=== PATIENT | male | born 1975 | race Caucasian/White ===

== ENCOUNTER 2017-08-10 01:28 | Emergency (ER) | payer OTHER, SELFPAY ==
[2017-08-10 02:06] LABS: #Basophils 0.2 thou/uL (0.0-0.2); #Eosinphils 0.3 thou/uL (0.0-0.7); #Lymphocytes 3.6 thou/uL (1.20-3.40); #Monocytes 1.2 thou/uL (0.11-0.59); #Neutrophils 11.7 thou/uL (1.40-6.50); %Basophils 0.9 % (0.0-1.0); %Eosinophils 1.8 % (0.0-10.0); %Lymphocytes 21.4 % (21.0-51.0); %Monocytes 7.2 % (0.0-10.0); Hematocrit 51.7 % (42.0-52.0); Mean Platelet Volume 6.9 fL (7.4-10.4); Red Blood Cell (RBC) Count 5.38 mill/uL (4.70-6.10)
[2017-08-10 02:20] LABS: ALT (SGPT) 33 U/L (8-55); AST (SGOT) 17 U/L (5-34); Alkaline Phosphatase 62 U/L (40-150); Anion Gap 14 mmol/L (10-20); BUN (Urea Nitrogen) 14 mg/dL (8.9-20.6); Bilirubin, Total 0.4 mg/dL (0.2-1.2); Calc. Creatinine Clearance 0 mL/min (70-130); Calcium 9.9 mg/dL (7.8-10.44); Carbon Dioxide 23 mmol/L (22-29); Chloride 102 mmol/L (98-107); Estimated GFR-MDRD 90; Globulin 3.2 g/dL (2.4-3.5); Lipase 38 U/L (8-78); Protein, Total 7.8 g/dL (6.0-8.3)
[2017-08-10] MEDS ORDERED: Lidocaine Viscous Sol 2% 15 ml UD Cup ONE (02:50)
[2017-08-10] MEDS ORDERED: Ondansetron HCl/PF 4 MG/2 ML Vial ONE (02:50)
[2017-08-10] MEDS ORDERED: Mag-Al 1200 mg/1200 mg/30 ML UDCUP ONE (02:50)
[2017-08-10] MEDS ORDERED: Famotidine/PF 20 mg/2ml Vial ONE (03:00)
[2017-08-10 03:19] LABS: Troponin I 0.011 ng/mL (< 0.028)
[2017-08-10] MEDS ORDERED: Fentanyl 100 MCG/2 ML VIAL ONE ×2 (03:41→05:17)
[2017-08-10] MEDS ORDERED: Iopamidol 370 76% 100 ML VIAL ONE (07:50)
--- NOTE | 2017-08-10 12:07 | CT ---
PRELIMINARY REPORT/[facility]/EMERGENCY AFTER HOURS PROCEDURE: EXAM: CT Abdomen and Pelvis With Intravenous Contrast CLINICAL HISTORY: 42 years old, male; Pain; Abdominal pain; Epigastric; Patient HX: 42 y/o male, HX pancreatitis and po ssible pud, HTN, . presents for epigastric pain x 1 month present almost every day. Pt reports he patricia es protonix and carafate daily. No nvd, no fever. He ate fried chicken strips for dinner prior to com ing in. Pt reports the pain is sometimes worse with or after eating TECHNIQUE: Axial computed tomography images of the abdomen and pelvis with intravenous contrast. All CT scans at this facility use one or more dose reduction techniques, viz.: automated exposure control; ma/kV adj ustment per patient size (including targeted exams where dose is matched to indication; i.e. head); or iterative reconstruction technique. Coronal reformatted images were created and reviewed. CONTRAST: 96 mL of [id number] administered intravenously. COMPARISON: No relevant prior studies available. FINDINGS: Lower thorax: No acute findings. ABDOMEN: Liver: Normal. Gallbladder and bile ducts: Unremarkable. No biliary ductal dilatation. Pancreas: Approximately 1.5 cm low attenuation lesion in the pancreatic head, somewhat ill-defined pe ripherally with central fluid density. Otherwise grossly unremarkable. No significant peripancreatic inflammatory changes identified. Apparent short segment duodenal narrowing at the level of the pancre atic head may be due to contraction, although the appearance raises the possibility of a thin annular pancreas. Spleen: Normal. Adrenals: Normal. Kidneys and ureters: Normal. Stomach and bowel: Unremarkable. No evidence of obstruction. Appendix: No findings to suggest acute appendicitis. PELVIS: Bladder: Unremarkable. Reproductive: Unremarkable. ABDOMEN and PELVIS: Intraperitoneal space: No free air. No significant fluid collection. Bones/joints: Unremarkable. No acute fracture. Soft tissues: Unremarkable. Vasculature: Mild atherosclerotic plaque along the infrarenal aorta. Lymph nodes: Unremarkable. No enlarged lymph nodes. IMPRESSION: Small low attenuation lesion in the pancreatic head may represent a pseudocyst given the history. Comparison with any previous examinations and/or followup recommended. No significant peripancreatic inflammatory changes. Thank you for allowing us to participate in the care of your patient. Dictated and Authenticated by: Tee Diaz MD 08/10/2017 4:48 AM Central Time ([place] & [place]) FINAL REPORT CT ABDOMEN AND PELVIS: Technique: Multiple axial tomograms were obtained through the abdomen and pelvis with IV enhancement. History: Abdominal pain, history of pancreatitis. FINDINGS/IMPRESSION: There is a low attention lesion in the head of the pancreas measuring 1.2 cm. This was described on t he preliminary report. Pancreatic duct is mildly prominent. Comparison is made to prior CT of 02-23-12 and peripancreatic inflammatory changes were seen on that e xam. However, this low attention lesion was not present at that time. While a pseudocyst is a possibi lity, given history of pancreatitis, cystic neoplasm cannot be excluded and close follow up is recomm ended. Recommend repeat CT scan of the abdomen with pancreatic protocol within 3 months to evaluate. I am in agreement with the preliminary report. Code QA. Code T POS: [facility]
== END 2017-08-10 06:03 | disposition home or self-care (01) ==
LOC: ERS 01:28
DX: K29.70 Gastritis, unspecified, without bleeding (principal); I10 Essential (primary) hypertension; F41.9 Anxiety disorder, unspecified; F32.9 Major depressive disorder, single episode, unspecified; F17.210 Nicotine dependence, cigarettes, uncomplicated; Z79.899 Other long term (current) drug therapy
CPT/HCPCS: 36415; 74177; 80053; 82150; 82553; 83690; 84484; 85025; 93005; 96361; 96374; 96375; 96376; 99406; J2405; J3010; S0028

== ENCOUNTER 2018-03-24 16:37 | Emergency (ER) | payer BC, SELFPAY ==
[2018-03-24] MEDS ORDERED: HYDROcodone/Acetaminophen 10/325 mg Tablet ONE (16:53)
[2018-03-24] MEDS ORDERED: HYDROmorphone 0.5 MG/0.5 ML SYRINGE ONE (17:24)
[2018-03-24 17:26] LABS: #Basophils 0.1 thou/uL (0.0-0.2); #Eosinphils 0.3 thou/uL (0.0-0.7); #Lymphocytes 2.3 thou/uL (1.20-3.40); #Monocytes 1.1 thou/uL (0.11-0.59); #Neutrophils 6.6 thou/uL (1.40-6.50); %Basophils 0.6 % (0.0-1.0); %Eosinophils 2.8 % (0.0-10.0); %Lymphocytes 22.4 % (21.0-51.0); %Monocytes 10.5 % (0.0-10.0); %Neutrophils 63.8 % (42.0-75.0); Hemoglobin 12.6 g/dL (14.0-18.0); Mean Corpuscular HGB CONC 33.6 g/dL (32.0-36.0); Mean Corpuscular Hemoglobin 29.6 pg (27.0-31.0); Mean Corpuscular Volume 87.9 fL (78.0-98.0); Platelet Count 327 thou/uL (130-400); RBC Distribution Width 13.7 % (11.5-14.5); Red Blood Cell (RBC) Count 4.25 mill/uL (4.70-6.10); White Blood Cell (WBC) Count 10.4 thou/uL (4.8-10.8)
[2018-03-24 17:47] LABS: ALT (SGPT) 12 U/L (8-55); AST (SGOT) 12 U/L (5-34); Albumin 3.6 g/dL (3.5-5.0); Alkaline Phosphatase 74 U/L (40-150); Anion Gap 12 mmol/L (10-20); BUN (Urea Nitrogen) 13 mg/dL (8.9-20.6); Bilirubin, Total 0.2 mg/dL (0.2-1.2); Calc. Creatinine Clearance 0 mL/min (70-130); Calcium 9.3 mg/dL (7.8-10.44); Carbon Dioxide 29 mmol/L (22-29); Chloride 101 mmol/L (98-107); Estimated GFR-MDRD Greater than 90; Globulin 3.1 g/dL (2.4-3.5); Glucose 187 mg/dL (70-105); Protein, Total 6.7 g/dL (6.0-8.3); Sodium 138 mmol/L (136-145)
== END 2018-03-24 19:36 | disposition home or self-care (01) ==
LOC: ERS 16:37
DX: S81.802A Unspecified open wound, left lower leg, initial encounter (principal); F17.210 Nicotine dependence, cigarettes, uncomplicated; F41.9 Anxiety disorder, unspecified; F32.9 Major depressive disorder, single episode, unspecified; X58.XXXA Exposure to other specified factors, initial encounter
CPT/HCPCS: 36415; 80053; 83605; 85025; 87070; 87077; 87186; 87205; 96374; J1170

== ENCOUNTER 2018-04-17 07:53 | Emergency (ER) | payer SELFPAY ==
[2018-04-17] MEDS ORDERED: HYDROmorphone 0.5 MG/0.5 ML SYRINGE ONE (09:04)
[2018-04-17] MEDS ORDERED: Ondansetron ODT 4 MG TAB ONE (09:04)
[2018-04-17 10:05] LABS: #Basophils 0.1 thou/uL (0.0-0.2); #Eosinphils 0.2 thou/uL (0.0-0.7); #Lymphocytes 1.9 thou/uL (1.20-3.40); #Monocytes 1.1 thou/uL (0.11-0.59); #Neutrophils 12.3 thou/uL (1.40-6.50); %Basophils 0.5 % (0.0-1.0); %Lymphocytes 12.2 % (21.0-51.0); %Monocytes 6.8 % (0.0-10.0); %Neutrophils 79.5 % (42.0-75.0); Hemoglobin 12.8 g/dL (14.0-18.0); Mean Corpuscular HGB CONC 33.6 g/dL (32.0-36.0); Mean Corpuscular Hemoglobin 28.6 pg (27.0-31.0); Mean Platelet Volume 6.5 fL (7.4-10.4); Platelet Count 473 thou/uL (130-400); RBC Distribution Width 13.8 % (11.5-14.5); Red Blood Cell (RBC) Count 4.48 mill/uL (4.70-6.10); White Blood Cell (WBC) Count 15.4 thou/uL (4.8-10.8)
[2018-04-17 10:36] LABS: ALT (SGPT) 16 U/L (8-55); AST (SGOT) 24 U/L (5-34); Albumin 3.6 g/dL (3.5-5.0); Alkaline Phosphatase 105 U/L (40-150); BUN (Urea Nitrogen) 6 mg/dL (8.9-20.6); Bilirubin, Total Less than 0.2 mg/dL (0.2-1.2); Calc. Creatinine Clearance 0 mL/min (70-130); Calcium 9.7 mg/dL (7.8-10.44); Carbon Dioxide 21 mmol/L (22-29); Estimated GFR-MDRD Greater than 90; Globulin 3.9 g/dL (2.4-3.5); Glucose 216 mg/dL (70-105); Protein, Total 7.5 g/dL (6.0-8.3); Sodium 140 mmol/L (136-145)
[2018-04-17 10:37] LABS: Chloride 102 mmol/L (98-107); Potassium 2.9 mmol/L (3.5-5.1)
[2018-04-17 10:38] LABS: Anion Gap 20 mmol/L (10-20)
[2018-04-17] MEDS ORDERED: Potassium Chloride 20 MEQ TAB ONE (10:49)
== END 2018-04-17 11:10 | disposition left against medical advice (07) ==
LOC: ERS 07:53
DX: M86.9 Osteomyelitis, unspecified (principal); E87.6 Hypokalemia; E78.5 Hyperlipidemia, unspecified; I10 Essential (primary) hypertension; F41.9 Anxiety disorder, unspecified; F32.9 Major depressive disorder, single episode, unspecified; Z87.891 Personal history of nicotine dependence; Z79.899 Other long term (current) drug therapy
CPT/HCPCS: 36415; 80053; 83605; 85025; 87040; 96372; J1170; Q0162

== ENCOUNTER 2018-06-07 15:34 | Inpatient (IN) | payer BC, SELFPAY ==
[~2018-06-07 15:34] MED LIST: Iopamidol 370 76% 100 ML VIAL ONE; Iopamidol 370 76% 50 ML VIAL FS ONE
[2018-06-07] MEDS ORDERED: Lidocaine 1% (PF) 30 ML VIAL ONE (15:53)
[2018-06-07 15:57] LABS: #Basophils 0.1 thou/uL (0.0-0.2); #Eosinphils 0.4 thou/uL (0.0-0.7); #Monocytes 0.8 thou/uL (0.11-0.59); #Neutrophils 6.3 thou/uL (1.40-6.50); %Eosinophils 3.2 % (0.0-10.0); %Lymphocytes 34.6 % (21.0-51.0); %Neutrophils 54.2 % (42.0-75.0); Hemoglobin 16.3 g/dL (14.0-18.0); Mean Corpuscular HGB CONC 33.4 g/dL (32.0-36.0); Mean Corpuscular Hemoglobin 29.4 pg (27.0-31.0); Mean Platelet Volume 7.6 fL (7.4-10.4); Platelet Count 333 thou/uL (130-400); RBC Distribution Width 14.7 % (11.5-14.5); Red Blood Cell (RBC) Count 5.54 mill/uL (4.70-6.10); White Blood Cell (WBC) Count 11.5 thou/uL (4.8-10.8)
--- NOTE | 2018-06-07 16:14 | RAD ---
CHEST ONE VIEW: History: 43-year-old male with history of chest pain. Stemi alert. Comparison: 03-20-14 FINDINGS: Heart size is within normal limits. The lungs are clear. No pneumonia, edema, pleural effusion or oth er acute process. IMPRESSION: No acute intrathoracic disease. POS: [facility]
[2018-06-07 16:21] LABS: ALT (SGPT) 21 U/L (8-55); AST (SGOT) 23 U/L (5-34); Albumin 4.8 g/dL (3.5-5.0); Alkaline Phosphatase 80 U/L (40-150); Anion Gap 18 mmol/L (10-20); BUN (Urea Nitrogen) 15 mg/dL (8.9-20.6); Bilirubin, Total 0.3 mg/dL (0.2-1.2); CK (CPK) 158 U/L (30-200); Calc. Creatinine Clearance 0 mL/min (70-130); Calcium 10.2 mg/dL (7.8-10.44); Carbon Dioxide 26 mmol/L (22-29); Chloride 102 mmol/L (98-107); Estimated GFR-MDRD 62; Globulin 3.4 g/dL (2.4-3.5); Glucose 87 mg/dL (70-105); Lipase 12 U/L (8-78); Potassium 3.9 mmol/L (3.5-5.1); Protein, Total 8.2 g/dL (6.0-8.3); Sodium 142 mmol/L (136-145)
[2018-06-07] MEDS ORDERED: Fentanyl 100 MCG/2 ML VIAL ONE (16:29)
[2018-06-07] MEDS ORDERED: Midazolam HCl 2 mg/2 ml Vial ONE (16:29)
[2018-06-07 16:35] LABS: CKMB 9.2 ng/mL (0-6.6)
[2018-06-07] MEDS ORDERED: Verapamil 5 MG/2 ML VIAL ONE (16:35)
[2018-06-07] MEDS ORDERED: Heparin 10,000 UNITS/1 ML VIAL ONE (16:35)
[2018-06-07] MEDS ORDERED: Nitroglycerin 100MG/250ML BOT 250 ML ONE (16:35)
[2018-06-07] MEDS ORDERED: Adenosine 6 MG/2 ML VIAL ONE (16:54)
[2018-06-07] MEDS ORDERED: traMADol HCl 50 MG TAB PO PRN (17:09)
[2018-06-07] MEDS ORDERED: Mag-Al 1200 mg/1200 mg/30 ML UDCUP PO PRN (17:09)
[2018-06-07] MEDS ORDERED: Milk Of Magnesia 30 ML UDCUP PO PRN (17:09)
[2018-06-07] MEDS ORDERED: cloNIDine 0.1 MG TAB PO PRN (17:09)
[2018-06-07] MEDS ORDERED: Nitroglycerin 0.4 MG TAB (25 Tab Bottle) SL PRN (17:09)
[2018-06-07] MEDS ORDERED: Sodium Chloride 0.9% 1,000 ML IV SCH (17:15)
[2018-06-07 17:45] VITALS: BMI 25.6
[2018-06-07 18:26] LABS: CKMB 7.7 ng/mL (0-6.6)
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
[2018-06-07] MEDS: Zolpidem Tartrate 5 MG TAB PO PRN (21:01)
[2018-06-07] MEDS: Acetaminophen/Codeine 30-300mg Tablet PO PRN (21:01)
[2018-06-08 05:00] LABS: #Eosinphils 0.3 thou/uL (0.0-0.7); #Lymphocytes 2.1 thou/uL (1.20-3.40); #Monocytes 0.8 thou/uL (0.11-0.59); #Neutrophils 5.8 thou/uL (1.40-6.50); %Basophils 0.4 % (0.0-1.0); %Eosinophils 3.2 % (0.0-10.0); %Lymphocytes 23.8 % (21.0-51.0); %Monocytes 8.7 % (0.0-10.0); Hemoglobin 13.6 g/dL (14.0-18.0); Mean Corpuscular HGB CONC 32.9 g/dL (32.0-36.0); Mean Corpuscular Hemoglobin 29.5 pg (27.0-31.0); Mean Corpuscular Volume 89.4 fL (78.0-98.0); Mean Platelet Volume 7.8 fL (7.4-10.4); Platelet Count 253 thou/uL (130-400); RBC Distribution Width 14.8 % (11.5-14.5); Red Blood Cell (RBC) Count 4.62 mill/uL (4.70-6.10)
[2018-06-08 05:21] LABS: ALT (SGPT) 17 U/L (8-55); AST (SGOT) 18 U/L (5-34); Albumin 3.7 g/dL (3.5-5.0); Alkaline Phosphatase 58 U/L (40-150); Anion Gap 11 mmol/L (10-20); BUN (Urea Nitrogen) 12 mg/dL (8.9-20.6); Bilirubin, Total 0.5 mg/dL (0.2-1.2); Calc. Creatinine Clearance 105 mL/min (70-130); Calcium 8.9 mg/dL (7.8-10.44); Carbon Dioxide 24 mmol/L (22-29); Chloride 107 mmol/L (98-107); Estimated GFR-MDRD 87; Globulin 2.4 g/dL (2.4-3.5); Glucose 106 mg/dL (70-105); Potassium 3.9 mmol/L (3.5-5.1); Protein, Total 6.1 g/dL (6.0-8.3); Sodium 138 mmol/L (136-145)
[2018-06-08] MEDS: Acetaminophen/Codeine 30-300mg Tablet PO PRN ×3 (07:38→21:26)
[2018-06-08] MEDS: Clopidogrel Bisulfate 75 MG TAB PO SCH (07:40)
--- NOTE | 2018-06-08 16:42 | EKG ---
Test Reason : Blood Pressure : / mmHG Vent. Rate : 072 BPM Atrial Rate : 072 BPM P-R Int : 110 ms QRS Dur : 090 ms QT Int : 408 ms P-R-T Axes : 053 077 145 degrees QTc Int : 446 ms Sinus rhythm with short WA RSR' or QR pattern in V1 suggests right ventricular conduction delay Abnormal ECG When compared with ECG of 07-JUN-2018 15:39, (Unconfirmed) ST no longer depressed in Inferior leads ST now depressed in Anterior leads Nonspecific T wave abnormality now evident in Inferior leads T wave inversion now evident in Anterolateral leads Confirmed by ANANTH ALEXANDER, DR. Nava (4) on 06/08/2018 4:42:28 PM Referred By: PETER Confirmed By:DR. Elijah WADSWORTH MD
--- NOTE | 2018-06-08 17:05 | EKG ---
Test Reason : Blood Pressure : / mmHG Vent. Rate : 085 BPM Atrial Rate : 085 BPM P-R Int : 128 ms QRS Dur : 074 ms QT Int : 336 ms P-R-T Axes : 051 085 074 degrees QTc Int : 399 ms Normal sinus rhythm Possible Left atrial enlargement ST elevation consider anterior injury or acute infarct ACUTE WI / STEMI Abnormal ECG Confirmed by ANANTH ALEXANDER, DR. Nava (4) on 06/08/2018 5:05:24 PM Referred By: Confirmed By:DR. Elijah WADSWORTH MD
[2018-06-08] MEDS ORDERED: Atorvastatin Calcium 40 MG TAB PO SCH (21:00)
[2018-06-08] MEDS: Zolpidem Tartrate 5 MG TAB PO PRN (21:28)
[2018-06-09] MEDS: Clopidogrel Bisulfate 75 MG TAB PO SCH (08:20)
[2018-06-09 12:46] VITALS: BP 108/60; TEMP 98.5
--- NOTE | 2018-06-09 14:43 | DIS ---
DATE OF ADMISSION: 06/07/2018 DATE OF DISCHARGE: 06/09/2018 DISCHARGE DIAGNOSES: 1. Myocardial infarction. 2. Status post anterior wall myocardial infarction. 3. Status post PTCA and stent placement of the left anterior descending. 4. Diabetes mellitus. 5. Tobacco abuse. SUMMARY: This patient is a 43-year-old gentleman who presented with acute onset of substernal chest discomfort. The patient was taken emergently to the cardiac catheterization laboratory. The patient was found to have a subtotal left anterior descending artery. The patient underwent emergent PTCA a nd stent placement into the LAD. A drug eluded stent was placed without complications. The patient was admitted to the ICU. He was placed on medical therapy. The patient was highly advised to discon tinue smoking. DISCHARGE MEDICATIONS: Toprol 25 XL daily, Lipitor 40 at bedtime, aspirin 81 daily, Plavix 75 daily, and nitroglycerin sublingual p.r.n.
== END 2018-06-09 13:11 | disposition home or self-care (01) | DRG 247 ==
LOC: ERS 15:34 → CCU 15:48 → 2NO 06-08 09:21
PROVIDERS: ADMIT Internal Medicine Cardiovascular Disease; ATTEND Internal Medicine Cardiovascular Disease
PROC: 027034Z Dilation of Coronary Artery, One Artery with Drug-eluting Intraluminal Device, Percutaneous Approach (ICD-10-PCS; principal; 2018-06-07)
PROC: 4A023N7 Measurement of Cardiac Sampling and Pressure, Left Heart, Percutaneous Approach (ICD-10-PCS; 2018-06-07)
PROC: B2111ZZ Fluoroscopy of Multiple Coronary Arteries using Low Osmolar Contrast (ICD-10-PCS; 2018-06-07)
PROC: B2151ZZ Fluoroscopy of Left Heart using Low Osmolar Contrast (ICD-10-PCS; 2018-06-07)
PROC: B240ZZ3 Ultrasonography of Single Coronary Artery, Intravascular (ICD-10-PCS; 2018-06-07)
DX: I21.09 ST elevation (STEMI) myocardial infarction involving other coronary artery of anterior wall (principal); E11.9 Type 2 diabetes mellitus without complications; Z88.5 Allergy status to narcotic agent; I25.10 Atherosclerotic heart disease of native coronary artery without angina pectoris; Z87.891 Personal history of nicotine dependence
CPT/HCPCS: 36415; 71045; 76942; 80053; 82553; 83690; 84484; 85025; 85347; 92928; 92941; 92978; 93005; 93010; 93458; 93798; 94760; 96374; 99152; A4216; C1725; C1753; C1769; C1874; C9600; C9606; J0153; J1644; J2001; J2250; J3010

== ENCOUNTER 2018-09-15 09:27 | Inpatient (IN) | payer BC, SELFPAY ==
[2018-09-15 10:03] LABS: #Basophils 0.1 thou/uL (0.0-0.2); #Eosinphils 0.2 thou/uL (0.0-0.7); #Lymphocytes 1.4 thou/uL (1.20-3.40); #Monocytes 1.3 thou/uL (0.11-0.59); #Neutrophils 15.1 thou/uL (1.40-6.50); %Basophils 0.4 % (0.0-1.0); %Lymphocytes 7.7 % (21.0-51.0); %Monocytes 7.3 % (0.0-10.0); %Neutrophils 83.6 % (42.0-75.0); Hemoglobin 15.7 g/dL (14.0-18.0); Mean Corpuscular HGB CONC 33.6 g/dL (32.0-36.0); Mean Corpuscular Hemoglobin 31.2 pg (27.0-31.0); Mean Corpuscular Volume 92.9 fL (78.0-98.0); Mean Platelet Volume 8.2 fL (7.4-10.4); Platelet Count 211 thou/uL (130-400); RBC Distribution Width 13.4 % (11.5-14.5); Red Blood Cell (RBC) Count 5.04 mill/uL (4.70-6.10); White Blood Cell (WBC) Count 18.1 thou/uL (4.8-10.8)
--- NOTE | 2018-09-15 10:08 | RAD ---
TWO VIEWS LEFT KNEE: DATE: 09/15/2018. HISTORY: Joint pain left knee. FINDINGS: There is evidence of a below the knee amputation on the left.. There is slight mottled appearance of the distal femur as well as proximal tibia. Findings are probably related to osteopenia/osteoporosi s due to disuse. No fracture is seen and there is no joint space narrowing identified. There does a ppear to be mild subcutaneous soft tissue swelling on either side of the knee. No joint effusion is appreciated. IMPRESSION: 1. Findings which are likely attributable to osteopenia/osteoporosis. 2. Left below the knee amputation. 3. Mild subcutaneous edema. 3. No acute osseous abnormality visualized. POS: [facility]
[2018-09-15] MEDS ORDERED: Piperacillin/Tazobactam 4.5 GM VIAL ONE (10:13)
[2018-09-15 10:23] LABS: ALT (SGPT) 17 U/L (8-55); AST (SGOT) 13 U/L (5-34); Alkaline Phosphatase 68 U/L (40-150); Anion Gap 16 mmol/L (10-20); BUN (Urea Nitrogen) 8 mg/dL (8.9-20.6); Bilirubin, Total 0.8 mg/dL (0.2-1.2); Calc. Creatinine Clearance 0 mL/min (70-130); Carbon Dioxide 22 mmol/L (22-29); Chloride 98 mmol/L (98-107); Estimated GFR-MDRD 81; Glucose 258 mg/dL (70-105); Potassium 3.3 mmol/L (3.5-5.1); Sodium 133 mmol/L (136-145)
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
[2018-09-15] MEDS ORDERED: HYDROcodone/Acetaminophen 10/325 mg Tablet ONE (11:23)
[2018-09-15] MEDS ORDERED: Senokot S 8.6-50 MG TAB PO PRN (12:22)
[2018-09-15] MEDS ORDERED: Acetaminophen 325 MG TAB PO PRN (12:22)
[2018-09-15] MEDS ORDERED: Bisacodyl 5 MG TAB PO PRN (12:22)
[2018-09-15] MEDS ORDERED: Ondansetron ODT 4 MG TAB PO PRN (12:22)
[2018-09-15] MEDS ORDERED: Lactated Ringer's 1,000 ML IV SCH (12:22)
[2018-09-15] MEDS ORDERED: clonazePAM 0.5 MG TAB PO PRN (12:57)
[2018-09-15 13:06] LABS: Hemoglobin A1c 5.2 % (4.0-6.0)
[2018-09-15] MEDS: Lactated Ringer's 1,000 ML IV SCH ×2 (13:33→20:37)
[2018-09-15 13:45] VITALS: BMI 27.1
[2018-09-15] MEDS: HYDROcodone/Acetaminophen 10/325 mg Tablet PO PRN ×2 (13:57→20:29)
[2018-09-15 14:18] LABS: Lactic Acid 1.3 mmol/L (0.5-2.2)
[2018-09-15] MEDS ORDERED: Potassium Chloride 20 MEQ TAB PO SCH (16:00)
[2018-09-15] MEDS: Piperacillin/Tazobactam 3.375 GM in Sodium Chloride 0.9% 100 ML IVPB SCH ×2 (17:02→23:25)
[2018-09-15 17:43] LABS: Lactic Acid 1.1 mmol/L (0.5-2.2)
[2018-09-15] MEDS: Vancomycin HCl 1.25 GM in Sodium Chloride 0.9% 250 ML 250 ML IVPB SCH (20:29)
[2018-09-15] MEDS ORDERED: Famotidine 20 MG TAB PO SCH (21:00)
[2018-09-16] MEDS: HYDROcodone/Acetaminophen 10/325 mg Tablet PO PRN ×4 (02:05→20:23)
[2018-09-16] MEDS: traZODone HCl 50 MG TAB PO PRN (02:05)
[2018-09-16] MEDS: Vancomycin HCl 1.25 GM in Sodium Chloride 0.9% 250 ML 250 ML IVPB SCH ×3 (04:58→20:25)
[2018-09-16 05:11] LABS: #Basophils 0.1 thou/uL (0.0-0.2); #Eosinphils 0.4 thou/uL (0.0-0.7); #Lymphocytes 1.9 thou/uL (1.20-3.40); #Monocytes 1.4 thou/uL (0.11-0.59); #Neutrophils 10.8 thou/uL (1.40-6.50); %Basophils 0.5 % (0.0-1.0); %Eosinophils 2.4 % (0.0-10.0); %Lymphocytes 13.4 % (21.0-51.0); %Monocytes 9.3 % (0.0-10.0); %Neutrophils 74.4 % (42.0-75.0); Hemoglobin 13.6 g/dL (14.0-18.0); Mean Corpuscular HGB CONC 34.1 g/dL (32.0-36.0); Mean Corpuscular Hemoglobin 31.5 pg (27.0-31.0); Mean Corpuscular Volume 92.4 fL (78.0-98.0); Mean Platelet Volume 7.9 fL (7.4-10.4); Platelet Count 197 thou/uL (130-400); RBC Distribution Width 13.2 % (11.5-14.5); Red Blood Cell (RBC) Count 4.32 mill/uL (4.70-6.10); White Blood Cell (WBC) Count 14.5 thou/uL (4.8-10.8)
[2018-09-16 05:19] LABS: Anion Gap 13 mmol/L (10-20); BUN (Urea Nitrogen) 9 mg/dL (8.9-20.6); Calc. Creatinine Clearance 131 mL/min (70-130); Calcium 9.4 mg/dL (7.8-10.44); Carbon Dioxide 24 mmol/L (22-29); Chloride 104 mmol/L (98-107); Estimated GFR-MDRD Greater than 90; Glucose 131 mg/dL (70-105); Potassium 3.7 mmol/L (3.5-5.1); Sodium 137 mmol/L (136-145)
[2018-09-16] MEDS: Lactated Ringer's 1,000 ML IV SCH ×2 (05:25→17:02)
--- NOTE | 2018-09-16 05:50 | PDOC.FM ---
- Subjective Subjective: Pt reports good rest overnight with no new problems, reports good pain control and has no complaints at this time. no fever/chills, no cp, no sob - Objective MAR Reviewed: Yes Vital Signs & Weight: Vital Signs (12 hours) Temp Pulse Resp BP BP Pulse Ox 09/16/18 04:00 99 F 79 16 113/59 L 96 09/16/18 00:00 99.4 F 94 16 135/72 99 09/15/18 19:50 99 09/15/18 19:01 98.4 F 86 18 131/71 99 Weight Weight 78.562 kg I&O: 09/14/18 09/15/18 09/16/18 06:59 06:59 06:59 Intake Total 1000 Balance 1000 Result Diagrams: 09/16/18 04:42 09/16/18 04:42 Phys Exam - Physical Examination Constitutional: NAD HEENT: moist MMs, sclera anicteric Neck: no JVD, supple Respiratory: no wheezing, clear to auscultation bilateral Cardiovascular: RRR, no significant murmur Gastrointestinal: soft, non-tender Musculoskeletal: pulses present L BKA Neurological: normal sensation Psychiatric: normal affect Skin: no rash, normal turgor Deviation from normal: LLE edema, and erythema (improved) Dx/Plan (1) Sepsis due to cellulitis Code(s): L03.90 - CELLULITIS, UNSPECIFIED; A41.9 - SEPSIS, UNSPECIFIED ORGANISM Status: Acute (2) CAD (coronary artery disease) Code(s): I25.10 - ATHSCL HEART DISEASE OF [place] CORONARY ARTERY W/O ANG PCTRS Status: Acute (3) COPD (chronic obstructive pulmonary disease) Status: Acute (4) Smoking Code(s): F17.200 - NICOTINE DEPENDENCE, UNSPECIFIED, UNCOMPLICATED Status: Acute (5) Hypokalemia Code(s): E87.6 - HYPOKALEMIA Status: Acute - Plan Plan: 43yo M with pmh of L BKA and hx of MRSA infection presenting with LLE cellulitis failed outpatient treatment. Sepsis 2/2 LLE cellulitis A- Pt received one dose of clindamycin Wednesday and had still worsening edema. Pt met sirs criteria by elevated WBC and HR 95 on admission. Pt afebrile as of now and appears well hydrated on exam. LA 2.4->1.3->1.1 and has no symptoms of systemic infection and tolerating good PO intake. Considering Hx of MRSA infection will treat empirically. s/p vanc and zosyn in ED. CBC trended down. P- Continue Vanc and Zosyn - await BCx - await wound Cx - continue contact precautions - will DC IVF today - pain mgmt with home norco COPD A- Pt does not appear to be in acute exacerbation P- prn duonebs - will clarify if pt on home spiriva CAD -continue home meds, chart review for recent echo Hypokalemia -resolved Anxiety disorder -home meds Tobacco abuse -world travel counselor cessation, pt denies patch Elevated Blood glucose on admission - Pt denies Hx of DM, A1C 5.2 Code: FULL Addendum - Attending - Attending Attestation Date/Time: 09/16/18 [id number] I personally evaluated the patient and discussed the management with Dr. Lin I agree with the History, Examination, Assessment and Plan documented above with any addition or exceptions noted below. area of erythema markedly regressed will continue observation coalescence anteriorly to BKA stump no mild induration no drainage this am . Discussed Patients with prosthestic liner with PMHX MRSA and topical cleaning agents verse replacement .
[2018-09-16] MEDS: Piperacillin/Tazobactam 3.375 GM in Sodium Chloride 0.9% 100 ML IVPB SCH ×3 (06:04→18:35)
[2018-09-16] MEDS: Clopidogrel Bisulfate 75 MG TAB PO SCH (08:40)
[2018-09-16] MEDS: Enoxaparin Sodium 40 MG/0.4 ML SYRINGE SC SCH (08:40)
[2018-09-16 11:34] LABS: Vancomycin, Trough 14.1 ug/mL
[2018-09-17] MEDS: Piperacillin/Tazobactam 3.375 GM in Sodium Chloride 0.9% 100 ML IVPB SCH ×2 (00:26→06:18)
[2018-09-17] MEDS: traZODone HCl 50 MG TAB PO PRN (00:34)
[2018-09-17] MEDS: Vancomycin HCl 1.25 GM in Sodium Chloride 0.9% 250 ML 250 ML IVPB SCH (04:36)
[2018-09-17] MEDS: HYDROcodone/Acetaminophen 10/325 mg Tablet PO PRN ×2 (06:17→14:10)
--- NOTE | 2018-09-17 06:18 | PDOC.FM ---
- Subjective Subjective: Doing well this morning, no overnight events. Reports redness has improved with antibiotics but is concerned about wound on BKA site. Denies fever, chills, shortness of breath. - Objective MAR Reviewed: Yes Vital Signs & Weight: Vital Signs (12 hours) Temp Pulse Resp BP Pulse Ox 09/16/18 19:56 98.9 F 78 20 117/76 97 Weight Weight 78.562 kg I&O: 09/15/18 09/16/18 09/17/18 06:59 06:59 06:59 Intake Total 1000 1225 Balance 1000 1225 Result Diagrams: 09/16/18 04:42 09/16/18 04:42 Phys Exam - Physical Examination Constitutional: NAD HEENT: oral pharynx no lesions Neck: supple Respiratory: wheezing present Cardiovascular: RRR, no significant murmur Gastrointestinal: soft, non-tender, positive bowel sounds Musculoskeletal: pulses present L BKA with small crusted wound, no drainage. Minimal surrounding erythema Neurological: moves all 4 limbs Psychiatric: normal affect, A&O x 3 Skin: cap refill <2 seconds Dx/Plan (1) CAD (coronary artery disease) Code(s): I25.10 - ATHSCL HEART DISEASE OF [place] CORONARY ARTERY W/O ANG PCTRS Status: Acute (2) COPD (chronic obstructive pulmonary disease) Status: Acute (3) Hypokalemia Code(s): E87.6 - HYPOKALEMIA Status: Acute (4) Sepsis due to cellulitis Code(s): L03.90 - CELLULITIS, UNSPECIFIED; A41.9 - SEPSIS, UNSPECIFIED ORGANISM Status: Acute (5) Smoking Code(s): F17.200 - NICOTINE DEPENDENCE, UNSPECIFIED, UNCOMPLICATED Status: Acute - Plan Plan: LLE Cellulitis - S/p PO Clindamycin x1 (1/2) with worsening symptoms. - SIRs criteria at admission, resolved - Discontinue Vanc and Zosyn, Hx of MRSA infection, will transition to Doxycyline BID for 10 days - Blood cultures NGTD - Wound cultures: Moderate Gram positive rods and cocci in pairs - Continue contact precautions - Continue home Pegram for Pain, with Senna & Dulcolax for bowel regimen Lactic Acidosis, resolved - LA 2.4->1.3->1.1 - Tolerating PO intake Sepsis 2/2 LLE cellulitis, resolved COPD - Pt does not appear to be in acute exacerbation - Duonebs PRN, Spiriva CAD - Continue home ASA, plavix, metoprolol - Cath 05/2018 with stent placement in mid LAD - Does not appear to be on statin, will start Atorvastatin Hypokalemia, resolved Anxiety disorder - Continue home Clonazepam Tobacco abuse - Encourage cessation, pt declines patch Elevated Blood glucose on admission - A1C 5.2 - Likely response to infection Code Status: FULL DVT ppx: Lovenox Dispo: Will evaluate ambulation in prosthesis, possibly today or tomorrow Addendum - Attending - Attending Attestation Date/Time: 09/17/18 1022 I personally evaluated the patient and discussed the management with Dr. Fernández. I agree with the History, Examination, Assessment and Plan documented above with any addition or exceptions noted below. Patient here on day 3 of IV abx for cellultis of the L thigh. It is showing improvement both objectively and subjectively per patient. Will transition to PO abx at this time. Encourage ambulation and consider discharge later today if he feels well.
[2018-09-17] MEDS ORDERED: Spiriva 18 MCG CAP (Box of 5 Caps) INH SCH (07:32)
[2018-09-17] MEDS: Clopidogrel Bisulfate 75 MG TAB PO SCH (08:00)
[2018-09-17] MEDS: Enoxaparin Sodium 40 MG/0.4 ML SYRINGE SC SCH (08:01)
[2018-09-17 09:07] VITALS: BP 109/69; TEMP 98.5
[2018-09-17] MEDS ORDERED: Ipratropium Bromide 2.5 ml Neb NEB SCH (13:00)
[2018-09-17] MEDS ORDERED: Atorvastatin Calcium 20 MG TAB PO SCH (21:00)
[2018-09-17] MEDS ORDERED: Doxycycline 100 MG CAP PO SCH (21:00)
--- NOTE | 2018-09-19 08:26 | DIS ---
DATE OF ADMISSION: 09/15/2018 DATE OF DISCHARGE: 09/17/2018 RESIDENT: Tanja Fernández, PGY 1. ADMITTING ATTENDING: Dr. Jad Rico. DISCHARGE ATTENDING: Dr. Michi Ennis. CONSULTS: None. PROCEDURE PERFORMED: Tibia-fibula x-ray findings attributed to osteopenia . Left lovlb-vzz-dzna amputation. Mild subcutaneous edema. No acute osseous abnormality visualized. PRIMARY DIAGNOSES: 1. Left lower extremity cellulitis. 2. Lactic acidosis, resolved. 3. Sepsis secondary to left lower extremity cellulitis, resolved. SECONDARY DIAGNOSES: 1. Chronic obstructive pulmonary disease. 2. Coronary artery disease. 3. Hypokalemia, resolved. 4. Anxiety disorder. 5. Tobacco abuse. 6. Elevated blood glucose on admission. DISCHARGE MEDICATIONS: 1. Aspirin 81 mg q.a.m. 2. Atorvastatin 40 mg q.h.s. 3. Clonazepam 1 mg daily. 4. Plavix 75 mg daily. 5. Doxycycline 100 mg b.i.d. 6. Gabapentin 600 mg q.8 hours. 7. Foxworth 10/325 q.6 hours p.r.n. 8. Atrovent 2.5 mL nebulized q.6 hours p.r.n. 9. Ipratropium/DuoNeb q.4 hours p.r.n. 10. Lansoprazole 15 mg q.a.m. 11. Lisinopril 2.5 mg q.a.m. 12. Metoprolol succinate 25 mg daily. 13. Pregabalin 100 mg b.i.d. 14. Trazodone 50 mg q.h.s. HISTORY OF PRESENT ILLNESS/HOSPITAL COURSE: Mr. Hardin is a 43-year-old male who presented with 2-day history of worsening left lower leg edema and erythema to amputation site. Seen in clinic the day prior and was prescribed clindamycin. He had received one dose of clindamycin and noted worsening of his symptoms. He did notice some white-yellow discharge expressed from one spot prior to presentation. This was cultured at admission and grew group G strep. On admission, labs were notable for white blood cell count of 18.1, downtrended to 14.5. Lactic acid was 2.4, downtrended to 1.3 and 1.1. Hemoglobin A1c was checked to evaluate for barriers to wound healing. Hemoglobin A1c was 5.2%. Of note, the patient is also a smoker that could compromise wound healing. The patient was started on vancomycin and Zosyn in the ED. This was transitioned to doxycycline b.i.d. for a total of 10 days. He was afebrile throughout the hospitalization. His chronic medical conditions of COPD, CAD, anxiety, and tobacco abuse were managed with home medications. It did not appear that the patient was taking atorvastatin, so the patient was discharged on atorvastatin and can follow up with his PCP outpatient. He was noted to also have an elevated blood glucose on admission of 258, hemoglobin A1c was checked, it was 5.2%. This is likely a response to the infection that the blood glucose was elevated. The patient did of note have hypokalemia of 3.3, that resolved prior to discharge at 3.7. The patient was evaluated using a prosthesis. He was able to walk but with some pain. He was educated on cleaning the prosthesis prior to wearing it. DISPOSITION: Stable. DISCHARGE INSTRUCTIONS: 1. Location, home. 2. Diet, heart healthy. 3. Activity, as tolerated. 4. Follow up with PCP, Dr. Lopez on 09/20/2018. Job ID: [id number]
== END 2018-09-17 17:31 | disposition home or self-care (01) | DRG 564 ==
LOC: ERS 09:27 → ONC 10:35
PROVIDERS: ADMIT Family Medicine; ATTEND Family Medicine
DX: T87.44 Infection of amputation stump, left lower extremity (principal); A41.9 Sepsis, unspecified organism; L03.116 Cellulitis of left lower limb; E87.2 Acidosis; E87.1 Hypo-osmolality and hyponatremia; M85.862 Other specified disorders of bone density and structure, left lower leg; F17.210 Nicotine dependence, cigarettes, uncomplicated; G89.29 Other chronic pain; E87.6 Hypokalemia; E78.5 Hyperlipidemia, unspecified; I10 Essential (primary) hypertension; Z98.890 Other specified postprocedural states; F32.9 Major depressive disorder, single episode, unspecified; Z88.5 Allergy status to narcotic agent; Y83.5 Amputation of limb(s) as the cause of abnormal reaction of the patient, or of later complication, without mention of misadventure at the time of the procedure
CPT/HCPCS: 36415; 80048; 80053; 80202; 83036; 83605; 85025; 85652; 87040; 87070; 87077; 87205; 96365; 96367; J1650; J2543; J3370; J7050

== ENCOUNTER 2019-02-02 15:44 | Emergency (ER) | payer BC, SELFPAY ==
[2019-02-02 16:51] LABS: #Basophils 0.1 thou/uL (0.0-0.2); #Eosinphils 0.3 thou/uL (0.0-0.7); #Lymphocytes 2.8 thou/uL (1.20-3.40); #Monocytes 0.6 thou/uL (0.11-0.59); #Neutrophils 4.7 thou/uL (1.40-6.50); %Basophils 0.8 % (0.0-1.0); %Eosinophils 3.3 % (0.0-10.0); %Lymphocytes 32.9 % (21.0-51.0); %Monocytes 6.9 % (0.0-10.0); %Neutrophils 56.2 % (42.0-75.0); Hemoglobin 16.1 g/dL (14.0-18.0); Mean Corpuscular HGB CONC 35.8 g/dL (32.0-36.0); Mean Corpuscular Hemoglobin 32.1 pg (27.0-31.0); Mean Corpuscular Volume 89.8 fL (78.0-98.0); Platelet Count 204 thou/uL (130-400); RBC Distribution Width 12.1 % (11.5-14.5); White Blood Cell (WBC) Count 8.4 thou/uL (4.8-10.8)
[2019-02-02 17:18] LABS: ALT (SGPT) 37 U/L (8-55); AST (SGOT) 24 U/L (5-34); Albumin 4.4 g/dL (3.5-5.0); Alkaline Phosphatase 72 U/L (40-150); Anion Gap 13 mmol/L (10-20); BUN (Urea Nitrogen) 9 mg/dL (8.9-20.6); Bilirubin, Total 0.3 mg/dL (0.2-1.2); CK (CPK) 193 U/L (30-200); Calc. Creatinine Clearance 0 mL/min (70-130); Calcium 9.6 mg/dL (7.8-10.44); Carbon Dioxide 28 mmol/L (22-29); Chloride 104 mmol/L (98-107); Estimated GFR-MDRD 72; Globulin 2.5 g/dL (2.4-3.5); Glucose 113 mg/dL (70-105); Potassium 3.9 mmol/L (3.5-5.1); Protein, Total 6.9 g/dL (6.0-8.3); Sodium 141 mmol/L (136-145)
== END 2019-02-02 20:56 | disposition home or self-care (01) ==
LOC: ERS 15:44
DX: R07.2 Precordial pain (principal); I25.2 Old myocardial infarction; E78.5 Hyperlipidemia, unspecified; I10 Essential (primary) hypertension; F41.9 Anxiety disorder, unspecified; F32.9 Major depressive disorder, single episode, unspecified; F17.210 Nicotine dependence, cigarettes, uncomplicated; Z79.899 Other long term (current) drug therapy; Z89.512 Acquired absence of left leg below knee
CPT/HCPCS: 36415; 80053; 82550; 84484; 85025; 93005

== ENCOUNTER 2019-02-07 17:25 | Inpatient (IN) | payer SELFPAY ==
[2019-02-07 18:06] LABS: #Basophils 0.1 thou/uL (0.0-0.2); #Eosinphils 0.2 thou/uL (0.0-0.7); #Monocytes 0.6 thou/uL (0.11-0.59); #Neutrophils 5.4 thou/uL (1.40-6.50); %Basophils 1.1 % (0.0-1.0); %Eosinophils 2.6 % (0.0-10.0); %Monocytes 6.8 % (0.0-10.0); %Neutrophils 57.6 % (42.0-75.0); Mean Corpuscular HGB CONC 34.9 g/dL (32.0-36.0); Mean Corpuscular Hemoglobin 31.6 pg (27.0-31.0); Mean Corpuscular Volume 90.5 fL (78.0-98.0); Mean Platelet Volume 7.7 fL (7.4-10.4); Platelet Count 200 thou/uL (130-400); Red Blood Cell (RBC) Count 4.75 mill/uL (4.70-6.10); White Blood Cell (WBC) Count 9.4 thou/uL (4.8-10.8)
[2019-02-07 18:32] LABS: ALT (SGPT) 53 U/L (8-55); AST (SGOT) 24 U/L (5-34); Albumin 4.4 g/dL (3.5-5.0); Alkaline Phosphatase 75 U/L (40-150); Anion Gap 13 mmol/L (10-20); BUN (Urea Nitrogen) 14 mg/dL (8.9-20.6); Bilirubin, Total 0.8 mg/dL (0.2-1.2); CK (CPK) 149 U/L (30-200); Calc. Creatinine Clearance 0 mL/min (70-130); Calcium 9.5 mg/dL (7.8-10.44); Carbon Dioxide 27 mmol/L (22-29); Chloride 103 mmol/L (98-107); Estimated GFR-MDRD 65; Globulin 2.1 g/dL (2.4-3.5); Glucose 105 mg/dL (70-105); Lipase 7 U/L (8-78); Potassium 3.7 mmol/L (3.5-5.1); Protein, Total 6.5 g/dL (6.0-8.3); Sodium 139 mmol/L (136-145)
[2019-02-07 18:50] LABS: CKMB 1.8 ng/mL (0-6.6)
--- NOTE | 2019-02-07 19:54 | RAD ---
PORTABLE CHEST: Date: 02/07/19 HISTORY: Chest pain. FINDINGS: Lungs are clear. Heart and mediastinum unremarkable. IMPRESSION: No acute process. POS: [facility]
[2019-02-07] MEDS ORDERED: Aspirin Chewable 81 MG TAB ONE (20:08)
[2019-02-07] MEDS ORDERED: Nitroglycerin 2% Ointment 1 INCH/1 GM Packet ONE (20:08)
--- NOTE | 2019-02-07 20:28 | PDOC.FPRHP ---
- History of Present Illness Chief Complaint: Chest pain History of Present Illness: 43 y/o M w/ PMHx of CAD, HTN, and tobacco presents from Dr[facility] for chest pain and >27 nitro used in 1 day to relieve pain. He was seen by his PCP last week and noted to be going through 25 nitro a day for frequent episodes of chest pain similar to his prior [place]. EKG was obtained during this office visit which was at baseline from his post stent placement EKG from 2018. He reports his pain started after he ran out of his aspirin and metoprolol. Pt was seen by Cards today and sent to the ER for admission with plan for repeat cath and possible stent placement. Pt reports his sxs have not improved any since being sent to the ER last week. Notes going through 27 nitro in the last 24 hours. Denies any current chest pain, was placed on transdermal nitro-bid in the ER and given ASA. ED Course: Nitro paste 1 inch Aspirin 324 mg - Allergies/Adverse Reactions Allergies Allergy/AdvReac Type Severity Reaction Status Date / Time morphine Allergy Severe Hives Verified 02/07/19 21:49 - Home Medications Medication Instructions Recorded Confirmed Type Aspirin Chewable [Aspirin Chewable 81 mg PO QAM 06/07/18 02/07/19 History Tablet] HYDROcodone/Acetaminophen [Holliday 10 - 325 mg PO Q6H PRN 06/07/18 02/07/19 History 10-325 Tablet] Atorvastatin Calcium [Lipitor] 40 mg PO HS #30 tab 06/09/18 02/07/19 Rx Clopidogrel Bisulfate [Plavix] 75 mg PO DAILY 30 Days #30 tab 06/09/18 02/07/19 Rx Metoprolol Succinate [Toprol XL] 25 mg PO DAILY 30 Days #30 tab 06/09/18 Rx traZODone HCl [Desyrel] 1 tab PO HS 09/15/18 02/07/19 History Isosorbide Mononitrate [Imdur ER] 30 mg PO DAILY 02/07/19 02/07/19 History Nitroglycerin [Nitrostat] 0.4 mg SL Q5MIN #20 tab 02/08/19 Rx - History PMHx:HTN, CAD PSHx: Drug eluding stent placed within the past year FHx: noncontributory Social: Reports smoking 1 pack per day - Review of Systems General: denies: fever/chills, weight/appetite/sleep changes, night sweats Eyes: denies: eye pain, vision changes ENT: denies: nasal congestion Respiratory: denies: cough, shortness of breath Cardiovascular: reports: chest pain. denies: palpitation, edema, orthopnea Gastrointestinal: denies: nausea, vomiting, diarrhea Genitourinary: denies: incontinence, dysuria Skin: denies: rashes, lesions Musculoskeletal: denies: pain, tenderness Neurological: denies: numbness, syncope, weakness Psychological: denies: anxiety, depression - Vital signs BP: 122/79 HR: 74 RR: 16 Tmax: 98.8 Pox: 99% on ra Wt: 97 kg - Physical Exam Constitutional: NAD, awake, alert and oriented, well developed HEENT: normocephalic and atraumatic, PERRLA, EOMI, conjunctiva clear, grossly normal vision, grossly normal hearing, MMM Neck: trachea midline, no JVD Chest: no-tender to palpation Heart: RRR, normal S1/S2, no murmurs/rubs/gallops Lungs: CTAB, no respiratory distress, no wheezing Abdomen: soft, non-tender, bowel sounds present Musculoskeletal: normal structure, normal tone, ROM grossly normal Skin: good turgor, capillary refill <2 seconds Heme/Lymphatic: no unusual bruising or bleeding Psychiatric: normal mood and affect FMR H&P: Results - Labs Result Diagrams: 02/07/19 21:17 02/08/19 03:06 Lab results: WBC 9.4 thou/uL (4.8-10.8) 02/07/19 17:46 Hgb 15.0 g/dL (14.0-18.0) 02/07/19 17:46 Hct 43.0 % (42.0-52.0) 02/07/19 17:46 MCV 90.5 fL (78.0-98.0) 02/07/19 17:46 Plt Count 200 thou/uL (130-400) 02/07/19 17:46 Neutrophils % 57.6 % (42.0-75.0) 02/07/19 17:46 Sodium 139 mmol/L (136-145) 02/07/19 17:46 Potassium 3.7 mmol/L (3.5-5.1) 02/07/19 17:46 Chloride 103 mmol/L (98-107) 02/07/19 17:46 Carbon Dioxide 27 mmol/L (22-29) 02/07/19 17:46 BUN 14 mg/dL (8.9-20.6) 02/07/19 17:46 Creatinine 1.21 mg/dL (0.7-1.3) 02/07/19 17:46 Glucose 105 mg/dL (70-105) 02/07/19 17:46 Calcium 9.5 mg/dL (7.8-10.44) 02/07/19 17:46 Total Bilirubin 0.8 mg/dL (0.2-1.2) 02/07/19 17:46 AST 24 U/L (5-34) 02/07/19 17:46 ALT 53 U/L (8-55) 02/07/19 17:46 Alkaline Phosphatase 75 U/L (40-150) 02/07/19 17:46 Creatine Kinase 149 U/L (30-200) 02/07/19 17:46 CK-MB (CK-2) 1.8 ng/mL (0-6.6) 02/07/19 17:46 B-Natriuretic Peptide 42.5 pg/mL (0-100) 02/07/19 17:46 Serum Total Protein 6.5 g/dL (6.0-8.3) 02/07/19 17:46 Albumin 4.4 g/dL (3.5-5.0) 02/07/19 17:46 Lipase 7 U/L (8-78) L 02/07/19 17:46 - EKG Interpretation EKG: NSR, no st depressions or elevations - Radiology Interpretation Chest x-ray Status: report reviewed by me (no acute process) FMR H&P: A/P - Problem List (1) Tobacco abuse Current Visit: Yes Status: Acute Code(s): Z72.0 - TOBACCO USE (2) HTN (hypertension) Current Visit: Yes Status: Acute Code(s): I10 - ESSENTIAL (PRIMARY) HYPERTENSION (3) CAD (coronary artery disease) Current Visit: No Status: Acute Code(s): I25.10 - ATHSCL HEART DISEASE OF [place] CORONARY ARTERY W/O ANG PCTRS - Plan This is a 43 yo male with a pmh of HTN, tobacco abuse, and CAD Unstable angina -Admit to tele -Dr. Hwang consulted, plans to cath today -On heparin drip -Nitor PRN -Continue aspirin, metoprolol, and plavix after cath HTN -Continue home meds Tobacco abuse -Encourage cessation -Avoiding nicotine patch due to risk of returning angina Code: FUll Prophylaxis: none Family: None at bedside Fluids: SL Diet: NPO Disposition: DC in 2-3 days PCP: CARMEL Nguyễn FMR H&P: Upper Level - Plan Date/Time: 02/07/192027 Leny Gonzales MD, have evaluated this patient and agree with findings/plan as outlined by purchasing intern resident. Pertinent changes/additions are listed here. 43 y/o M w/ PMHx of [place] w/ subsequent HERBERT placed 06/2018 w/ 90% stenosis of the LAD presents from Dr[facility] for chest pain. He was seen by his PCP last week and noted to be going through 25 nitro a day for frequent episodes of chest pain similar to his prior [place]. EKG was obtained during this office visit which was at baseline from his post stent placement EKG from 2018. He was sent to the ER from this visit for concern for unstable angina and possible clotting of his HERBERT as he could not afford his medication and had only been taking his Plavix over the prior week which co-incited w/ the onset of his chest pain. ER planned for patient to be admitted, but patient refused 2/2 financial reasons and was discharged home and advised to follow-up w/ cardiology. His EKG and trops were negative at this time. Pt was seen by Cards today and sent to the ER for admission with plan for repeat cath and possible stent placement. Pt reports his sxs have not improved any since being sent to the ER last week. Notes going through 27 nitro in the last 24 hours. Denies any current chest pain , was placed on transdermal nitro-bid in the ER and given ASA. Vitals per purchasing intern note Trop 0.039 EKG NSR, no ST segment changes, no T-wave inversions CXR NAD Exam grossly WNL. BKA L-LE w/ prosthesis 39 y/o M w/: 1) Unstable Angina - Pt w/ frequent chest pain similar to prior [place]. Concern for clotting of his HERBERT. - Will admit to tele and place on heparin gtt w/ serial cardiac enzymes and transdermal nitro - No evidence of STEMI on EKG and troponins currently in indeterminate range - NPO at midnight w/ plans for cardiac catheterization w/ Dr. Hwang - Cont. w/ high intensity statin, beta cecilia, ASA 2) Other chronic problems per purchasing intern note Addendum - Attending - Attending Attestation Date/Time: 02/08/19 2683 I personally evaluated the patient and discussed the management with Dr. Mckeon and Jessica last night. I agree with the History, Examination, Assessment and Plan documented above with any addition or exceptions noted below.
[2019-02-07] MEDS ORDERED: Acetaminophen 325 MG TAB PO PRN (20:56)
[2019-02-07] MEDS ORDERED: Acetaminophen 650 MG Suppository PR PRN (20:56)
[2019-02-07] MEDS ORDERED: Heparin 25,000 units/D5W 500 ML IVPB SCH (20:56)
[2019-02-07] MEDS ORDERED: Ondansetron ODT 4 MG TAB PO PRN (20:56)
[2019-02-07] MEDS ORDERED: Ondansetron PF 4 MG/2 ML Vial IVP PRN (20:56)
[2019-02-07 21:13] VITALS: BMI 28.8
[2019-02-07] MEDS: Nitroglycerin 0.4 MG TAB (25 Tab Bottle) PO PRN (21:16)
[2019-02-07 21:29] LABS: Platelet Count 206 thou/uL (130-400)
[2019-02-07] MEDS: Heparin 10,000 UNITS/ 10 ML VIAL SLOW IVP SCH (21:29)
[2019-02-07 21:30] LABS: Troponin I 0.038 ng/mL (< 0.028)
--- NOTE | 2019-02-07 22:06 | PDOC.EVN ---
Event Note - Event Note Event Note: Date/Time: 02/07/192203 I personally evaluated the patient and discussed the management with Drs. Mckeon and Jessica. H&P is pending. I agree with the History, Examination, Assessment and Plan as discussed. Treatment for unstable angina ordered. Cath planned by Dr Hwang tomorrow morning.
[2019-02-07] MEDS: Sodium Chloride 0.9% 1,000 ML IV SCH (22:40)
[2019-02-08 00:15] LABS: Troponin I 0.022 ng/mL (< 0.028)
[2019-02-08] MEDS: Nitroglycerin 0.4 MG TAB (25 Tab Bottle) PO PRN ×6 (00:20→11:44)
[2019-02-08 03:54] LABS: Anion Gap 13 mmol/L (10-20); BUN (Urea Nitrogen) 15 mg/dL (8.9-20.6); Calc. Creatinine Clearance 111 mL/min (70-130); Calcium 9.2 mg/dL (7.8-10.44); Carbon Dioxide 23 mmol/L (22-29); Chloride 106 mmol/L (98-107); Estimated GFR-MDRD 81; Glucose 123 mg/dL (70-105); Potassium 3.4 mmol/L (3.5-5.1); Sodium 139 mmol/L (136-145)
[2019-02-08] MEDS: Heparin 10,000 UNITS/ 10 ML VIAL SLOW IVP SCH (05:03)
[2019-02-08] MEDS ORDERED: HYDROcodone/Acetaminophen 10/325 mg Tablet PO PRN (05:50)
--- NOTE | 2019-02-08 08:36 | PDOC.FM ---
- Subjective Subjective: pt resting comfortably in bed, denies chest pain or SOB - Objective Vital Signs & Weight: Vital Signs (12 hours) Temp Pulse Resp BP Pulse Ox 02/08/19 03:51 97.6 F 72 16 131/75 94 L 02/08/19 03:45 182/105 H 02/08/19 00:25 78 123/75 02/08/19 00:20 79 172/98 H 02/07/19 23:13 98.5 F 76 18 118/68 96 02/07/19 21:21 83 135/86 02/07/19 21:15 89 172/101 H 02/07/19 20:42 98.6 F 78 18 144/82 H 97 Weight Weight 83.404 kg I&O: 02/07/19 02/08/19 02/09/19 06:59 06:59 06:59 Intake Total 1221.6 Balance 1221.6 Result Diagrams: 02/07/19 21:17 02/08/19 03:06 Phys Exam - Physical Examination Constitutional: NAD HEENT: moist MMs Neck: no JVD Gastrointestinal: no distention Musculoskeletal: no edema Neurological: moves all 4 limbs Psychiatric: normal affect Skin: no rash Dx/Plan (1) HTN (hypertension) Code(s): I10 - ESSENTIAL (PRIMARY) HYPERTENSION Status: Acute (2) Tobacco abuse Code(s): Z72.0 - TOBACCO USE Status: Acute (3) CAD (coronary artery disease) Code(s): I25.10 - ATHSCL HEART DISEASE OF [place] CORONARY ARTERY W/O ANG PCTRS Status: Acute (4) COPD (chronic obstructive pulmonary disease) Status: Acute - Plan Plan: Unstable angina -EKG wnl, troponin indeterminate, chest pain resolving with nitro for 2 weeks -Dr. Hwang consulted, plans to cath today -Continue heparin drip -Nitor PRN for chest pain -Continue aspirin, metoprolol, and plavix after cath HTN -Continue home meds Tobacco abuse -Encourage cessation -Avoiding nicotine patch due to risk of returning angina Code: FUll ppx: hep drip PCP: CARMEL Nguyễn Dispo: cath today Addendum - Attending - Attending Attestation Date/Time: 02/08/19 1052 I personally evaluated the patient and discussed the management with Dr. Romero. I agree with the History, Examination, Assessment and Plan documented above with any addition or exceptions noted below. Patient here for suspected UA in the setting of known CAD and medication noncompliance. He was sent to ER by our clinic 1 week ago and recommended admission but patient left ER AMA. Seen by cardiology yesterday and admitted. Concern for stent thrombosis or re-occlusion as not compliant with medical therapy due to finances. He is currently on heparin drip and taking nitro as needed for chest pain. Trops downtrending. He is going for cath this AM and further mgmt and recs per Cardiology.
[2019-02-08] MEDS: Aspirin Chewable 81 MG TAB PO SCH (08:40)
[2019-02-08] MEDS: Sodium Chloride 0.9% 1,000 ML IV SCH ×2 (08:42→20:52)
[2019-02-08] MEDS ORDERED: Communication Order-Pharmacy FS SCH (08:45)
[2019-02-08] MEDS ORDERED: Adenosine 6 MG/2 ML VIAL ONE (09:03)
[2019-02-08] MEDS ORDERED: Heparin 10,000 UNITS/1 ML VIAL ONE (09:03)
[2019-02-08] MEDS ORDERED: Verapamil 5 MG/2 ML VIAL ONE (09:03)
[2019-02-08] MEDS ORDERED: Nitroglycerin 100MG/250ML BOT 250 ML ONE (09:04)
[2019-02-08] MEDS ORDERED: Iopamidol 370 76% 100 ML VIAL ONE (09:47)
[2019-02-08] MEDS ORDERED: Iopamidol 370 76% 50 ML VIAL FS ONE (09:47)
[2019-02-08] MEDS ORDERED: Nitroglycerin 4.9 GM Bottle ONE (12:34)
[2019-02-08] MEDS ORDERED: Midazolam HCl 2 mg/2 ml Vial ONE ×2 (12:35→13:04)
[2019-02-08] MEDS ORDERED: Nitroglycerin 50 MG/250 ML BOT 250 ML ONE (12:38)
[2019-02-08] MEDS ORDERED: TICAGRELOR 90 MG TABLET ONE (13:03)
[2019-02-08] MEDS ORDERED: Fentanyl 100 MCG/2 ML VIAL ONE (13:06)
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
[2019-02-08] MEDS ORDERED: Atorvastatin Calcium 40 MG TAB PO SCH (21:00)
[2019-02-09 04:53] LABS: #Basophils 0.1 thou/uL (0.0-0.2); #Eosinphils 0.2 thou/uL (0.0-0.7); #Lymphocytes 2.1 thou/uL (1.20-3.40); #Monocytes 1.1 thou/uL (0.11-0.59); #Neutrophils 8.3 thou/uL (1.40-6.50); %Basophils 0.5 % (0.0-1.0); %Lymphocytes 17.6 % (21.0-51.0); %Monocytes 9.1 % (0.0-10.0); %Neutrophils 70.7 % (42.0-75.0); Hemoglobin 15.4 g/dL (14.0-18.0); Mean Corpuscular HGB CONC 33.4 g/dL (32.0-36.0); Mean Corpuscular Hemoglobin 30.3 pg (27.0-31.0); Mean Corpuscular Volume 90.8 fL (78.0-98.0); Mean Platelet Volume 7.8 fL (7.4-10.4); Platelet Count 195 thou/uL (130-400); Red Blood Cell (RBC) Count 5.07 mill/uL (4.70-6.10); White Blood Cell (WBC) Count 11.7 thou/uL (4.8-10.8)
[2019-02-09 05:18] LABS: ALT (SGPT) 40 U/L (8-55); AST (SGOT) 18 U/L (5-34); Albumin 4.1 g/dL (3.5-5.0); Alkaline Phosphatase 76 U/L (40-150); Anion Gap 14 mmol/L (10-20); BUN (Urea Nitrogen) 12 mg/dL (8.9-20.6); Bilirubin, Total 0.8 mg/dL (0.2-1.2); Calc. Creatinine Clearance 135 mL/min (70-130); Calcium 9.3 mg/dL (7.8-10.44); Carbon Dioxide 20 mmol/L (22-29); Chloride 108 mmol/L (98-107); Estimated GFR-MDRD Greater than 90; Globulin 2.3 g/dL (2.4-3.5); Glucose 115 mg/dL (70-105); Potassium 3.8 mmol/L (3.5-5.1); Protein, Total 6.4 g/dL (6.0-8.3); Sodium 138 mmol/L (136-145)
--- NOTE | 2019-02-09 06:54 | PDOC.FM ---
- Subjective Subjective: pt resting comfortably on the couch, denies chest pain or SOB - Objective Vital Signs & Weight: Vital Signs (12 hours) Temp Pulse Resp BP Pulse Ox 02/09/19 03:40 98.1 F 68 16 139/89 97 02/08/19 20:50 98 F 81 19 160/79 H 97 Weight Weight 83.404 kg I&O: 02/07/19 02/08/19 02/09/19 06:59 06:59 06:59 Intake Total 1221.6 2570 Output Total 1120 Balance 1221.6 1450 Result Diagrams: 02/09/19 04:35 02/09/19 04:35 Phys Exam - Physical Examination Constitutional: NAD HEENT: moist MMs Neck: no nodes Gastrointestinal: no distention Musculoskeletal: no edema Neurological: moves all 4 limbs Lymphatic: no nodes Psychiatric: normal affect Skin: no rash Dx/Plan (1) HTN (hypertension) Code(s): I10 - ESSENTIAL (PRIMARY) HYPERTENSION Status: Acute (2) Tobacco abuse Code(s): Z72.0 - TOBACCO USE Status: Acute (3) CAD (coronary artery disease) Code(s): I25.10 - ATHSCL HEART DISEASE OF [place] CORONARY ARTERY W/O ANG PCTRS Status: Acute (4) COPD (chronic obstructive pulmonary disease) Status: Acute - Plan Plan: Unstable angina -EKG wnl, troponin indeterminate, chest pain resolving with nitro for 2 weeks -Cardiology consulted, appreciate recs -s/p cath, appears intervention was required on previous stent -Nitor PRN for chest pain -Continue aspirin, metoprolol, and plavix HTN -Continue home meds Tobacco abuse -Encourage cessation -Avoiding nicotine patch due to risk of returning angina Code: FUll ppx; ambulation PCP: CARMEL Nguyễn Dispo: DC today Addendum - Attending - Attending Attestation Date/Time: 02/09/19 1118 I personally evaluated the patient and discussed the management with Dr. Romero. I agree with the History, Examination, Assessment and Plan documented above with any addition or exceptions noted below. Patient underwent heart cath yesterday that showed occlusion, now stented. He is doing well and will be discharged per Cardiology clearance. Needs to continue antiplatelet therapy meds to prevent recurrence.
[2019-02-09 07:16] VITALS: BP 140/88; TEMP 97.6
--- NOTE | 2019-02-09 08:50 | CCL ---
CARDIOLOGY PROCEDURE NOTE: Date: 02/08/19 PROCEDURES PERFORMED: 1. Percutaneous coronary intervention to the mid LAD with a 3.5 x 20 mm Synergy drug-eluting stent, posted to 3.65 mm. 2. AngioSeal vascular closure device to right femoral arteriotomy site. ESTIMATED BLOOD LOSS: 10 mL. COMPLICATIONS: None. SAMPLES OBTAINED: ACTs. SEDATION: were administered intravenously for moderate sedation. Pulse oximetry, heart rate, a nd blood pressure were monitored by an independent observer present. The physician spent a total of 3 0 minutes of [id number] time during sedation of the patient. SUMMARY: Mr. Hardin was brought in to the catheterization lab by Dr. 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 He had a heart catheterization diagnostic performed through the right femoral approac h showing severe in-stent restenosis on LAD stent. Dr. Larry asked me to intervene on this area. I upgraded the 5 [place] sheath to a 6 [place]. We then advanced an EBU 3.75 guide catheter and engaged the left main successfully. We then advanced a Luge wire into the LAD, past the lesion successfully. We predilated the area with a 2.5 x 12 NC balloon. We then advanced a 3.5 x 20 mm Synergy drug-elutin g stent to the area of concern, trying to cover an area of about 40% stenosis behind the stent. This was all treated successfully. Deployment balloon was inflated to about 3.65 mm. Postprocedure angiogr aphy showed adequate step-off and step-down of the stented areas with no evidence of edge dissection or edge perforation. No wire dissection or wire perforation. No distal embolization with LINDA 3 flow and 0% residual. He did have a little wire spasm distal to the vessel, which resolved after a dose of IC nitro. Imaging of the right femoral arteriotomy site were adequate for closure, so a 6 [place] AngioSeal vasc ular closure device was deployed successfully. RECOMMENDATIONS: 1. Dual antiplatelet therapy for minimum of 1 year with aspirin and Plavix. 2. Beta block, LORENZO inhibitor, and statin. 3. 2 hour bed rest and may discharge home after bed rest and IV fluids have been done.
[2019-02-09] MEDS ORDERED: Clopidogrel Bisulfate 75 MG TAB PO SCH (09:00)
[2019-02-09] MEDS ORDERED: Lisinopril 5 MG TAB PO SCH (09:00)
[2019-02-09] MEDS: Sodium Chloride 0.9% 1,000 ML IV SCH (09:03)
[2019-02-09] MEDS: Aspirin Chewable 81 MG TAB PO SCH (09:05)
--- NOTE | 2019-02-10 13:40 | DIS ---
DATE OF ADMISSION: 02/07/2019 DATE OF DISCHARGE: 02/09/2019 CONSULTS: Cardiology, Dr. Oni Hwang. PROCEDURES: Left heart catheterization with revascularization of previously placed stent. IMAGING: Chest x-ray, not significant for any acute cardiopulmonary abnormality. DISCHARGE MEDICATIONS: 1. Aspirin 81 mg p.o. q.a.m. 2. [place] 10/325 p.o. q.6 hours p.r.n. 3. Toprol-XL 25 mg p.o. daily. 4. Lipitor 40 mg p.o. at bedtime. 5. Trazodone 1 tablet p.o. at bedtime. 6. Nitroglycerin 0.4 mg SL q.5 minutes p.r.n. for chest pain. 7. Imdur 30 mg p.o. daily. 8. Plavix 75 mg p.o. daily. 9. Lisinopril 5 mg p.o. daily. PRIMARY DIAGNOSIS: Unstable angina. SECONDARY DIAGNOSES: 1. Hypertension. 2. Tobacco abuse. HISTORY OF PRESENT ILLNESS/HOSPITAL COURSE: Mr. Hardin is a 43-year-old male with a past medical history significant for coronary artery disease and hypertension, presents to outpatient cardiology clinic for chest pain. He has had ongoing chest pain for 2 weeks, resolved with nitroglycerin, has been taking nitroglycerin more than 20 times a today to relieve chest pain. Seen by PCP last week and instructed to go to the ER where he was evaluated and refused to be admitted. Presents this time for admission and left heart catheterization by Cardiology. The patient had multiple episodes of chest pain, resolving with nitroglycerin while on telemetry floor. No ST changes were noted and troponins were indeterminate. The patient underwent left heart catheterization and successful revascularization of the prior stent placed. Medical management was optimized. The patient's vital signs remained stable. The patient was asymptomatic after left heart catheterization for approximately 24 hours. Deemed stable for discharge to follow up with Cardiology. DISCHARGE INSTRUCTIONS: Location: Home. Activity as tolerated. Diet: Heart-healthy low-sodium. Followup: With Dr. Hwang in 2 weeks and PCP, Dr. Lopez in 7 days. Job ID: [id number]
== END 2019-02-09 12:00 | disposition home or self-care (01) | DRG 247 ==
LOC: ERS 17:25 → OBSVTOIN 20:43 → 2SW 20:43 → 2NO 02-08 07:16
PROVIDERS: ADMIT Family Medicine; ATTEND Family Medicine
PROC: 027034Z Dilation of Coronary Artery, One Artery with Drug-eluting Intraluminal Device, Percutaneous Approach (ICD-10-PCS; principal; 2019-02-08)
PROC: 4A023N7 Measurement of Cardiac Sampling and Pressure, Left Heart, Percutaneous Approach (ICD-10-PCS; 2019-02-08)
PROC: B2111ZZ Fluoroscopy of Multiple Coronary Arteries using Low Osmolar Contrast (ICD-10-PCS; 2019-02-08)
PROC: B2151ZZ Fluoroscopy of Left Heart using Low Osmolar Contrast (ICD-10-PCS; 2019-02-08)
DX: I25.110 Atherosclerotic heart disease of native coronary artery with unstable angina pectoris (principal); J44.9 Chronic obstructive pulmonary disease, unspecified; I10 Essential (primary) hypertension; Z87.891 Personal history of nicotine dependence; Z88.8 Allergy status to other drugs, medicaments and biological substances; Z79.899 Other long term (current) drug therapy; Z79.82 Long term (current) use of aspirin; I25.2 Old myocardial infarction
CPT/HCPCS: 36415; 71045; 76942; 80048; 80053; 82550; 82553; 83690; 83880; 84484; 85025; 85347; 85730; 92928; 93005; 93010; 93458; 93798; 99152; 99153; C1760; C1769; C1874; C9600; J0153; J1644; J2250; J3010; Q9967